=== PATIENT | female | born 1960 | race Two or more races ===

== ENCOUNTER 2023-03-16 16:48 | Emergency (ER) | payer MEDICAID, OTHER ==
[~2023-03-16] VITALS: Ht 182.9 cm; Wt 97.9 kg
[2023-03-16 20:14] VITALS: BP 136/79
[2023-03-16] MEDS ORDERED: IBUP-1456 PO (21:51)
== END 2023-03-16 21:58 | disposition home or self-care (01) ==
LOC: ER 16:48
DX: S92.901A Unspecified fracture of right foot, initial encounter for closed fracture (principal); I25.10 Atherosclerotic heart disease of native coronary artery without angina pectoris; I50.9 Heart failure, unspecified; Z86.73 Personal history of transient ischemic attack (TIA), and cerebral infarction without residual deficits; W01.0XXA Fall on same level from slipping, tripping and stumbling without subsequent striking against object, initial encounter; Y93.89 Activity, other specified; Y92.89 Other specified places as the place of occurrence of the external cause; Y99.8 Other external cause status
CPT/HCPCS: 73610; 73630

== ENCOUNTER 2023-03-31 22:07 | Emergency (ER) | payer MEDICAID ==
[~2023-03-31] VITALS: Ht 182.9 cm; Wt 97.8 kg
[~2023-03-31 22:07] MED LIST: IBUP-1456 PO
[2023-03-31 23:14] LABS: Basophils # (auto) 0.1 10 ^3/uL (0-0.2); Eosinophils # (auto) 0.5 10 ^3/uL (0-0.8); Eosinophils % (auto) 6.8 % (0.0-7.0); Hematocrit 46.3 % (36.0-46.0); Hemoglobin 15.6 g/dL (12.2-16.2); Lymphocytes # (auto) 1.7 10 ^3/uL (0.4-5.4); Lymphocytes % (auto) 23.1 % (10.0-50.0); Mean Corpuscular Hemoglobin 31.6 pg (28.0-32.0); Mean Corpuscular Hgb Conc. 33.7 g/dL (32.0-36.0); Mean Corpuscular Volume 93.7 fL (80.0-100.0); Monocytes # (auto) 0.6 10 ^3/uL (0-1.3); Monocytes % (auto) 7.6 % (0.0-12.0); Neutrophils # (auto) 4.5 10 ^3/uL (1.6-8.6); Neutrophils % (auto) 61.5 % (37.0-80.0); Nucleated Red Blood Cells % 0.1 %; Red Blood Cells 4.94 10^6/uL (4.0-5.20); Red Cell Distribution Width 13.3 % (11.8-14.3); White Blood Cell 7.3 10^3/uL (4.4-10.8)
[2023-03-31 23:28] LABS: INR 0.97 (0.9-1.15); Partial Thromboplastin Time 26.1 sec (24.6-33.4)
[2023-03-31 23:32] LABS: Albumin 3.5 g/dL (3.4-5.0); BUN/Creatinine Ratio 26.8 (10.0-20.0); Calcium 8.5 mg/dL (8.5-10.1); Potassium 3.4 mmol/L (3.5-5.1)
[2023-03-31 23:35] LABS: Bilirubin, Total 0.9 mg/dL (0.2-1.0); Total Protein 6.9 g/dL (6.4-8.2)
[2023-04-01 06:38] VITALS: BP 107/69
== END 2023-04-01 06:31 | disposition home or self-care (01) ==
LOC: ER 22:07
DX: S82.891A Other fracture of right lower leg, initial encounter for closed fracture (principal); E86.0 Dehydration; E87.6 Hypokalemia; I25.10 Atherosclerotic heart disease of native coronary artery without angina pectoris; I50.9 Heart failure, unspecified; Z86.73 Personal history of transient ischemic attack (TIA), and cerebral infarction without residual deficits; X50.1XXA Overexertion from prolonged static or awkward postures, initial encounter; Y93.89 Activity, other specified; Y92.89 Other specified places as the place of occurrence of the external cause; Y99.8 Other external cause status
CPT/HCPCS: 29515; 36415; 73610; 73630; 80053; 83605; 85025; 85610; 85730; 93926; 93970